=== PATIENT | male | born 1975 | race Caucasian/White ===

== ENCOUNTER 2020-04-17 23:29 | Emergency (ER) | payer SELFPAY ==
[~2020-04-17] VITALS: Ht 180.3 cm; Wt 114.4 kg
[2020-04-18 00:01] VITALS: BP 139/96
--- NOTE | 2020-04-18 00:35 | NUR ---
URINE SPECIMEN COLLECTED.
--- NOTE | 2020-04-18 00:36 | NUR ---
ERMD HUNTER EVALUATING IN TRIAGE.
[2020-04-18] MEDS ORDERED: metroNIDAZOLE 250 MG TAB PO ONE (00:40)
[2020-04-18] MEDS ORDERED: cefTRIAXone 500 MG in LIDOCAINE MPF 1% 1 ML IM ONE (00:40)
[2020-04-18] MEDS ORDERED: cefTRIAXone 500 MG VIAL ONE (00:54)
[2020-04-18] MEDS ORDERED: LIDOCAINE MPF 1% 5 ML ONE (00:54)
--- NOTE | 2020-04-18 01:00 | NUR ---
BLOOD DRAWN BY [employer]ATIONS SALES AGENT. MEDICATIONS ADMINSITERED PER ERMD ORDERS. PT SENT BACK TO [facility]
--- NOTE | 2020-04-18 02:12 | NUR ---
UNABLE TO LOCATE PT IN [facility] TO PROVIDE PRESCRIPTION AND D/C INSTRUCTIONS AT THIS TIME.
--- NOTE | 2020-04-18 02:38 | NUR ---
PT LEFT WITHOUT D/C PAPERS OR PRESCRIPTION
--- NOTE | 2020-04-18 02:54 | NUR ---
PHONED PT TO INFORM HIM THAT HE HAD A RX AND DISCHARGE PAPERWORK. 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
[2020-04-19 09:25] LABS: RAPID PLASMA REAGIN NON-REACTIVE (Non Reactiv)
== END 2020-04-18 02:38 | disposition home or self-care (01) ==
LOC: MED 23:29
DX: Z20.2 Contact with and (suspected) exposure to infections with a predominantly sexual mode of transmission (principal); Z11.3 Encounter for screening for infections with a predominantly sexual mode of transmission
CPT/HCPCS: 36415; 81002; 86592; 86703; 87491; 96372; 99283; J0696; J2001